=== PATIENT | female | born 1995 | race African-American/Black ===

== ENCOUNTER 2019-02-02 14:41 | Emergency (ER) | payer OTHER ==
[2019-02-02 14:49] VITALS: BP 127/81; PULSE 95; TEMP 98.7; BMI 38.4
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
[2019-02-02] MEDS ORDERED: IBUPROFEN 600 MG TABLET (FP) PO ONE ×3 (15:24→15:30)
== END 2019-02-02 15:46 | disposition home or self-care (01) ==
LOC: JERFT 14:41
PROC: 2W3QXYZ Immobilization of Right Lower Leg using Other Device (ICD-10-PCS; principal; 2019-02-02)
DX: S42.401A Unspecified fracture of lower end of right humerus, initial encounter for closed fracture (principal); S83.411A Sprain of medial collateral ligament of right knee, initial encounter; S40.021A Contusion of right upper arm, initial encounter; V86.59XA Driver of other special all-terrain or other off-road motor vehicle injured in nontraffic accident, initial encounter; Y93.89 Activity, other specified; Y92.820 Desert as the place of occurrence of the external cause; Y99.8 Other external cause status
CPT/HCPCS: 29530; 73070-TC-RT-FY; 73562-TC-RT-FY; 99282-25

== ENCOUNTER 2020-11-12 14:02 | Emergency (ER) | payer OTHER ==
[2020-11-12 14:12] VITALS: BP 116/70; PULSE 75; TEMP 98.1; BMI 33.8
[2020-11-12] MEDS ORDERED: IBUPROFEN 400 MG TABLET (FP) PO ONE ×2 (14:48→14:50)
== END 2020-11-12 15:43 | disposition home or self-care (01) ==
LOC: JERFT 14:02
DX: S39.012A Strain of muscle, fascia and tendon of lower back, initial encounter (principal); S43.401A Unspecified sprain of right shoulder joint, initial encounter
CPT/HCPCS: 73030-TC-RT-FY; 99283-25

== ENCOUNTER 2021-03-14 00:17 | Emergency (ER) | payer OTHER ==
[2021-03-14 01:01] VITALS: BP 127/83; PULSE 85; TEMP 98.2; BMI 36.6
[2021-03-14] MEDS ORDERED: AMOX TR/POT CLAV 875MG/125MG TABLETS (FP) PO ONE (02:47)
[2021-03-14] MEDS ORDERED: AMOX TR/POT CLAV 875MG/125MG TABLETS (FP) ONE (02:57)
== END 2021-03-14 03:02 | disposition home or self-care (01) ==
LOC: JER 00:17
DX: K04.7 Periapical abscess without sinus (principal)
CPT/HCPCS: 99283-25

== ENCOUNTER 2021-05-25 09:54 | Emergency (ER) | payer OTHER ==
[2021-05-25 10:14] VITALS: BP 110/71; PULSE 74; TEMP 97.8; BMI 36.6
== END 2021-05-25 11:16 | disposition home or self-care (01) ==
LOC: JER 09:54 → JERFT 09:54
DX: K08.89 Other specified disorders of teeth and supporting structures (principal)
CPT/HCPCS: 99281-25